=== PATIENT | male | born 1985 | race African-American/Black ===

== ENCOUNTER 2023-05-24 13:08 | Emergency (ER) | payer SELFPAY ==
[2023-05-24 13:16] VITALS: BP 117/82; PULSE 80; RESP 19; TEMP 37.2; O2SAT 97
== END 2023-05-24 14:55 | disposition left against medical advice (07) ==
LOC: ER 13:14
DX: Z53.21 Procedure and treatment not carried out due to patient leaving prior to being seen by health care provider (principal)

== ENCOUNTER 2024-02-09 17:54 | Emergency (ER) | payer SELFPAY ==
[2024-02-09 17:57] VITALS: BP 156/93; PULSE 101; RESP 20; TEMP 37.2; O2SAT 98
--- NOTE | 2024-02-09 19:21 | DI.RAD_ITS ---
Exam(s) XR SHOULDER LT COMPLETE 2+V EXAM: XR SHOULDER LT COMPLETE 2+V CLINICAL HISTORY: shoulder pain. TECHNIQUE: 2D digital imaging was performed. Three views. COMPARISON: No exams were available for comparison FINDINGS: BONES: No acute fracture is present. No bony destructive lesion is seen. JOINTS: No dislocation present. The AC joint is not widened. SOFT TISSUE: Normal. IMPRESSION: Unremarkable radiographs of the left shoulder. DATA REPOSITORY: RADIATION DOSE DELIVERED:
--- NOTE | 2024-02-09 19:21 | DI.RAD_ITS ---
Exam(s) XR LUMBAR SPINE COMPLETE EXAM: XR LUMBAR SPINE COMPLETE CLINICAL HISTORY: left shoulder pain. TECHNIQUE: 2D digital imaging was performed. Five views. COMPARISON: No exams were available for comparison FINDINGS: BONES: There are 6 lumbar type vertebral bodies. No fracture or destructive lesion. Vertebral body h eights are maintained. No facet hypertrophy identified. DISKS: Intervertebral disc spaces are maintained. ALIGNMENT: Lumbar spinal alignment is within normal limits. SOFT TISSUE: Normal. IMPRESSION: Unremarkable radiographs of the lumbar spine. DATA REPOSITORY: RADIATION DOSE DELIVERED:
[2024-02-09 19:35] VITALS: BP 131/95; PULSE 93; RESP 15; O2SAT 100
--- NOTE | 2024-02-09 20:07 | DI.VRAD_ITS ---
PROCEDURE INFORMATION: Exam: XR Left Shoulder Exam date and time: 02/09/2024 6:56 PM Age: 38 years old Clinical indication: Other: Shoulder pain TECHNIQUE: Imaging protocol: Radiologic exam of the left shoulder. Views: 2 or more views. COMPARISON: No relevant prior studies available. FINDINGS: Bones/joints: Glenohumeral and acromioclavicular joints are intact. Acromial humeral interval is maintained. Soft tissues: Normal. No calcification. IMPRESSION: Normal shoulder Dictated and Authenticated by: Lavon Travis MD. Ordering:SHANTELLE Romero MD
--- NOTE | 2024-02-09 20:08 | DI.VRAD_ITS ---
PROCEDURE INFORMATION: Exam: XR Lumbosacral Spine Exam date and time: 02/09/2024 7:07 PM Age: 38 years old Clinical indication: Other: Low back pain TECHNIQUE: Imaging protocol: Radiologic exam of the lumbosacral spine. Views: 4 or 5 views. COMPARISON: No relevant prior studies available. FINDINGS: Bones/joints: There are 6 [id number] lumbar type vertebrae with lumbarization of the 1st sacral segment. Vertebrae are all normal in height and alignment. Disc spaces are well maintained. Pedicles are intact. Facet joints are normal. Soft tissues: Unremarkable. IMPRESSION: No acute findings. Dictated and Authenticated by: Lavon Travis MD. Ordering:SHANTELLE Romero MD
[2024-02-09] MEDS: Cyclobenzaprine 10 MG TAB, 3 TABS/BTL PO (20:33)
[2024-02-09 20:34] VITALS: RESP 15; O2SAT 100
--- NOTE | 2024-02-09 20:43 | NUR.NOTE ---
Pt placed on referral list to establish primary care referral sent to [facility].
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
--- NOTE | 2024-02-10 08:27 | NUR.NOTE ---
Accessed chart for [facility] billing purposes. Nursing Note:
== END 2024-02-09 20:34 | disposition home or self-care (01) ==
PROVIDERS: Emergency Provider Physician Assistant
DX: S46.912A Strain of unspecified muscle, fascia and tendon at shoulder and upper arm level, left arm, initial encounter (principal); M25.512 Pain in left shoulder; M54.50 Low back pain, unspecified; X58.XXXA Exposure to other specified factors, initial encounter
CPT/HCPCS: 99284; 72110; 73030; 99283

== ENCOUNTER → 2025-09-20 10:49 | Outpatient (CLI) | payer MEDICAID, SELFPAY ==
--- NOTE | 2025-09-20 | DI.RAD_ITS ---
Exam(s) XR SHOULDER RT COMPLETE 2+V EXAM: XR SHOULDER RT COMPLETE 2+V CLINICAL HISTORY: M25.511,G89.29 Pain RT shoulder,Other chronic pain. TECHNIQUE: 2D digital imaging was performed. Four views. COMPARISON: CR,XR XR SHOULDER LT COMPLETE 2+V from 02/09/2024 FINDINGS: BONES: No acute fracture is present. No bony destructive lesion is seen. JOINTS: No dislocation present. Minimal spurring at the AC joint. Spurring at the undersurface of the acromion. Undersurface of the acromion. Minimal spurring at the glenoid. SOFT TISSUE: Normal. IMPRESSION: Mild degenerative changes. DATA REPOSITORY: RADIATION DOSE DELIVERED:
--- NOTE | 2025-09-20 | DI.RAD_ITS ---
Exam(s) XR LUMBAR SPINE COMPLETE EXAM: XR LUMBAR SPINE COMPLETE CLINICAL HISTORY: M54.41.G89.29 Lumbago w/sciatica, RT side, other chronic pain. TECHNIQUE: 2D digital imaging was performed. Five views. COMPARISON: No exams were available for comparison FINDINGS: BONES: No fracture or destructive lesion. Vertebral body heights are maintained. Limbus vertebra at L5. Minimal facet hypertrophy identified at L4- 5. DISKS: Intervertebral disc spaces are maintained. ALIGNMENT: Lumbar spinal alignment is within normal limits. SOFT TISSUE: Normal. IMPRESSION: Minimal degenerative changes. DATA REPOSITORY: RADIATION DOSE DELIVERED:
== END ==
LOC: DI 10:49
PROVIDERS: Visit Provider Family Medicine
DX: M25.511 Pain in right shoulder (principal); G89.29 Other chronic pain; M51.360 Other intervertebral disc degeneration, lumbar region with discogenic back pain only
CPT/HCPCS: 72110; 73030